=== PATIENT | male | born 1975 | race Caucasian/White ===

== ENCOUNTER → 2019-11-02 | Outpatient (REF) ==
--- NOTE | 2019-11-02 10:12 | Diagnostic Imaging Report ---
CLINICAL INDICATIONS: Patient with left distal humerus pain. Patient felt pop while lifting this morning. EXAM: X-ray of the left humerus, 3 views. COMPARISON: None. FINDINGS: There is no acute fracture or dislocation. There is no elbow effusion. There is mild hypertrophic spurs involve the proximal humeral head/neck junction region and mild to moderately hypertrophic spurs involving the left acromioclavicular interval. IMPRESSION: 1: There is no acute fracture or dislocation. 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 Dictated by: Dictated on workstation # [id number]
== END | disposition home or self-care (01) ==
LOC: OCC 09:34
PROVIDERS: ATTEND Nurse Practitioner Family
CPT/HCPCS: 73060